=== PATIENT | female | born 1955 | race African-American/Black ===

== ENCOUNTER 2024-12-17 08:27 | Outpatient (CLI) | payer MEDICARE | END 2024-12-17 08:28 | disposition home or self-care (01) | LOC: CSHSLEEP 08:27 | PROVIDERS: ATTEND Family Medicine | DX: G47.33 Obstructive sleep apnea (adult) (pediatric) (principal); R53.83 Other fatigue; R09.89 Other specified symptoms and signs involving the circulatory and respiratory systems; R51.9 Headache, unspecified; F32.A Depression, unspecified; F41.9 Anxiety disorder, unspecified | CPT/HCPCS: 95800 ==

== ENCOUNTER 2024-12-19 13:22 | Outpatient (CLI) | payer OTHER | END 2024-12-19 13:23 | disposition home or self-care (01) | LOC: CSHMAMMO 13:22 | PROVIDERS: ATTEND Student in an Organized Health Care Education/Training Program | DX: Z12.31 Encounter for screening mammogram for malignant neoplasm of breast (principal); N64.89 Other specified disorders of breast | CPT/HCPCS: 77063; 77067 ==

== ENCOUNTER 2024-12-23 08:17 | Outpatient (CLI) | payer OTHER | END 2024-12-23 08:18 | disposition home or self-care (01) | LOC: CSHMAMMO 08:17 | PROVIDERS: ATTEND Student in an Organized Health Care Education/Training Program | DX: N64.89 Other specified disorders of breast (principal) | CPT/HCPCS: 76642; 77065; G0279 ==

== ENCOUNTER → 2025-01-06 | Day surgery (SDC) | payer OTHER | LOC: CSHULT 12:37 | PROVIDERS: ATTEND Student in an Organized Health Care Education/Training Program | PROC: 0HBU3ZX Excision of Left Breast, Percutaneous Approach, Diagnostic (ICD-10-PCS; principal; 2025-01-06) | DX: N60.32 Fibrosclerosis of left breast (principal); Z88.6 Allergy status to analgesic agent | CPT/HCPCS: 19083; A4648; 88305 ==

== ENCOUNTER 2025-02-25 09:00 | Outpatient (CLI) | payer OTHER | END 2025-02-25 09:01 | disposition home or self-care (01) | LOC: CSHSLEEP 09:00 | PROVIDERS: ATTEND Student in an Organized Health Care Education/Training Program | DX: G47.33 Obstructive sleep apnea (adult) (pediatric) (principal); R53.83 Other fatigue; R09.89 Other specified symptoms and signs involving the circulatory and respiratory systems; R51.9 Headache, unspecified; F32.A Depression, unspecified; F41.9 Anxiety disorder, unspecified | CPT/HCPCS: 95810 ==